=== PATIENT | female | born 1955 | race Caucasian/White ===

== ENCOUNTER 2019-07-13 18:48 | Emergency (ER) | payer BC ==
[2019-07-13 19:01] VITALS: TEMP 98.6
[2019-07-13 19:25] LABS: Glucose,Whole Blood 321 mg/dL (75-99)
--- NOTE | 2019-07-13 19:47 | ED ---
General Adult HPI - General Chief complaint: Extremity Problem,Nontraumatic Stated complaint: Leg swelling Time Seen by Provider: 07/13/19 19:03 Source: patient Mode of arrival: ambulatory Limitations: physical limitation - History of Present Illness Initial comments: 63-year-old female patient presents to the emergency department today for evaluation of left lower extremity swelling and redness. Patient states that she noticed the swelling and redness starting this morning. Patient states that she is having some mild discomfort to the leg due to the swelling and tightness. Denies any fever or chills. Denies any known injury to the leg. 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 Patient denies current use of anticoagulants or antiplatelet medications. Patient states 2 days ago she did go home from work early due to feeling unwell and having an episode with vomiting. Her symptoms completely resolved and she now feels well. Patient states she has been increasing her walking more and has a blister on the left foot from her shoe. She denies any redness, swelling, or drainage surrounding this location. Patient denies any recent rash, cough, shortness of breath, chest pain, cough, orthopnea, abdominal pain, diarrhea, constipation, back pain, numbness, tingling, dizziness, weakness, hematuria, dysuria, urinary urgency, urinary frequency, headache, visual changes, or any other complaints. - Related Data Previous Rx's Medication Instructions Recorded Cephalexin [Keflex] 500 mg PO Q6HR #40 cap 07/13/19 Allergies Allergy/AdvReac Type Severity Reaction Status Date / Time banana Allergy Swelling Verified 07/13/19 19:01 melon Allergy Swelling Verified 07/13/19 19:01 plum Allergy Swelling Verified 07/13/19 19:01 Review of Systems ROS Statement: Those systems with pertinent positive or pertinent negative responses have been documented in the HPI. ROS Other: All systems not noted in ROS Statement are negative. Past Medical History Past Medical History: Diabetes Mellitus, Hyperlipidemia, Hypertension Additional Past Medical History / Comment(s): rt dvt History of Any Multi-Drug Resistant Organisms: None Reported Additional Past Surgical History / Comment(s): bladder suspension Past Psychological History: Anxiety Smoking Status: Never smoker Past Alcohol Use History: None Reported Past Drug Use History: None Reported General Exam Limitations: physical limitation General appearance: alert, in no apparent distress, other (This is a well- developed, well-nourished adult female patient in no acute distress. Vital signs upon presentation are temperature 98.6F, pulse 103, respirations 17, blood pressure 175/98, pulse ox 97% on room air.) Eye exam: Present: normal appearance, PERRL, EOMI. Absent: scleral icterus, conjunctival injection, periorbital swelling ENT exam: Present: normal exam, normal oropharynx, mucous membranes moist Respiratory exam: Present: normal lung sounds bilaterally. Absent: respiratory distress, wheezes, rales, rhonchi, stridor Cardiovascular Exam: Present: regular rate, normal rhythm, normal heart sounds. Absent: systolic murmur, diastolic murmur, rubs, gallop, clicks GI/Abdominal exam: Present: soft, normal bowel sounds. Absent: distended, tenderness, guarding, rebound, rigid Extremities exam: Present: full ROM, normal capillary refill, other (There is left lower extremity edema noted from the knee down to the ankle. There is erythema extending over the anterior aspect of the leg to the calf. No calf tenderness. Negative Homans sign. Post tibial and pedal pulse is 2+. Skin is otherwise pink, warm, and dry.). Absent: normal inspection, tenderness, pedal edema, joint swelling, calf tenderness Neurological exam: Present: alert, oriented X3, CN II-XII intact Psychiatric exam: Present: normal affect, normal mood Skin exam: Present: warm, dry, intact, normal color. Absent: rash Course Vital Signs 07/13/19 07/13/19 18:56 20:53 Temperature 98.6 F Pulse Rate 103 H 92 Respiratory 17 18 Rate Blood Pressure 175/98 151/93 O2 Sat by Pulse 97 100 Oximetry Medical Decision Making - Medical Decision Making 63-year-old female patient presents to the emergency department today for evaluation of left lower extremity swelling and erythema. Physical examination did reveal erythema extending over the anterior aspect of the lower extending into the lateral calf. Patient is also found to have elevated blood sugar. Ultrasound of the left lower extremity was negative for DVT. We'll treat for cellulitis with Keflex patient is instructed to call her Physician in the morning for further evaluation of her blood sugar and prescription medications. Return parameters discussed in detail. She verbalizes understanding and agrees with this plan. - Lab Data Lab Results 07/13/19 Range/Units 19:23 POC Glucose (mg/dL) 321 H (75-99) mg/dL POC Glu Clinical Appeals Specialist ID Andrew Novak - Radiology Data Radiology results: report reviewed, image reviewed Ultrasound of the left lower extremity was obtained. Report was reviewed in its entirety. Impression by Dr. Boyd shows no evidence for DVT at this time. Disposition Clinical Impression: Left leg cellulitis Disposition: HOME SELF-CARE Condition: Good Instructions (If sedation given, give patient instructions): Cellulitis (ED), Meal Planning with Diabetes Exchanges (DC) Additional Instructions: Take medication as directed. Increase fluids. Follow diabetic diet. Follow up w ith your primary care physician for recheck as soon as possible. Return to the emergency department immediately for any new, worsening, or concerning symptoms. Prescriptions: Cephalexin [Keflex] 500 mg PO Q6HR #40 cap Is patient prescribed a controlled substance at d/c from ED?: No Referrals: Nonstaff,Physician [Primary Care Provider] - 1-2 days Time of Disposition: 20:41
--- NOTE | 2019-07-13 20:20 | US ---
EXAMINATION TYPE: US venous doppler duplex LE LT DATE OF EXAM: 07/13/2019 8:06 PM COMPARISON: NONE CLINICAL HISTORY: Left leg swelling. Left leg swelling x 2 days. Hx of DVT in right leg. Patient does not take blood thinners. SIDE PERFORMED: Left TECHNIQUE: The lower extremity deep venous system is examined utilizing real time linear array sonog sari with graded compression, doppler sonography and color-flow sonography. VESSELS IMAGED: External Iliac Vein (EIV) Common Femoral Vein Deep Femoral Vein Greater Saphenous Vein * Femoral Vein Popliteal Vein Small Saphenous Vein * Proximal Calf Veins (* superficial vessels) Left Leg: No evidence of DVT in veins imaged at this time from prox calf veins to EIV. IMPRESSION: No evidence for DVT at this time.
[2019-07-13] MEDS ORDERED: CEPHALEXIN 500MG STARTER PACK 4 CAP BTL PO STA (20:30)
[2019-07-13 20:56] VITALS: BP 151/93; PULSE 92; RESP 18
== END 2019-07-13 21:00 | disposition home or self-care (01) ==
LOC: EC 18:48
DX: L03.116 Cellulitis of left lower limb (principal); E11.65 Type 2 diabetes mellitus with hyperglycemia; I10 Essential (primary) hypertension; Z91.018 Allergy to other foods; Z86.718 Personal history of other venous thrombosis and embolism
CPT/HCPCS: 36415; 99283